=== PATIENT | female | born 1985 | race Two or more races ===

== ENCOUNTER 2017-07-10 06:24 | Inpatient (IN) | payer OTHER ==
[2017-07-10] VITALS (7 sets, daily range): BP systolic 103–127; BP diastolic 45–69
[~2017-07-10] VITALS: Ht 160 cm; Wt 68.0 kg
[2017-07-10] MEDS ORDERED: NKM (06:33)
[2017-07-10] MEDS ORDERED: Ketorolac 30mg Inj IV ONE (06:45)
--- NOTE | 2017-07-10 06:49 | Emergency Room Report ---
History of Present Illness General Chief Complaint: Abdominal Pain Source: Patient Present Illness HPI The patient presents with abdominal pain. Began this morning. She feels it under her ribs on the left-hand side and it radiates down to the lower abdomen. It's more in the left upper abdomen. It's constant. /10. She felt was related to constipation and so she took a stool softener and also the other laxative. She last moved her bowels yesterday, normal. She denies any dysuria. Her last period was 10 days ago and normal for her. There's no fever , nausea, vomiting. It started 2 days ago in the evening time. It's been gradual in onset. She feels it is sharp. It's somewhat pleuritic and positional. She denies any cough. Never with this pain in the past. No calf pain or edema. No hemoptysis. No rashes. No documented fever. No joint pain or headache. 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 Period: a week ago Reviewed Nursing Documentation: PMH: Agreed, PSxH: Agreed Nursing Documentation-PMH Past Medical History: No Stated History Review of Systems All Other Systems: negative except mentioned in HPI Physical Exam Vital Signs Date Time Temp Pulse Resp B/P (MAP) Pulse Ox O2 Delivery O2 Flow Rate FiO2 07/10/17 06:25 99.0 104 16 127/84 98 Room Air 99.0 Sp02 EP Interpretation: reviewed, normal General Appearance: well appearing, no apparent distress, GCS 15 Head: normocephalic Eyes: bilateral eye normal inspection, bilateral eye PERRL ENT: moist mucus membranes Neck: supple Respiratory: lungs clear, normal breath sounds Cardiovascular #1: regular rate, rhythm Cardiovascular #2: 2+ radial (R) Gastrointestinal: normal inspection, normal bowel sounds, no mass, non- distended, no rebound, guarding - minimal L flank, LUQ and LLQ, tenderness - slight referred from other side Genitourinary: no CVA tenderness Musculoskeletal: back normal, gait/station normal, normal range of motion Neurologic: alert, oriented x3, grossly normal Psychiatric: mood/affect normal Skin: normal inspection, warm/dry Medical Decision Making Diagnostic Impression: Primary Impression: Acute diverticulitis ER Course Patient presents with left flank pain for 2 and half days. Differential includes gastritis, pyelonephritis, renal stone, splenic enlargement, ovarian cyst, diverticulitis amongst others. She doesn't think she is . Evaluation will be with labs and x-rays. The patient be treated with IV hydration and Toradol with a dose of Tylenol. Considerations for CT scan and possibly ultrasound. Restless leukocytosis. Urinalysis and electrolysis negative. Because of leukocytosis and persistent pain a CT scan of the abdomen and pelvis was ordered. Pain is somewhat improved. After the Toradol and Tylenol pain is down to 5/10. She still has a guarding in the left flank without rebound. CT with diverticulitis without perforation or abscess. Antibiotics ordered. Pain slightly worsened, morphine ordered. Pain better and declines more analgesia. Not surgical abdomen. Admit med Dr. Garcia. Laboratory Tests Test 07/10/17 06:34 07/10/17 07:00 Urine Color Pale yellow Urine Appearance Clear Urine pH 6 (4.5-8.0) Urine Specific [place] 1.020 (1.005-1.035) Urine Protein Negative (NEGATIVE) Urine Glucose (UA) Negative (NEGATIVE) Urine Ketones Negative (NEGATIVE) Urine Occult Blood Negative (NEGATIVE) Urine Nitrite Negative (NEGATIVE) Urine Bilirubin Negative (NEGATIVE) Urine Urobilinogen Normal MG/DL (0.0-1.0) Urine Leukocyte Esterase Negative (NEGATIVE) Urine HCG, Qualitative Negative White Blood Count 16.6 K/UL (4.8-10.8) H Red Blood Count 4.86 M/UL (4.20-5.40) Hemoglobin 15.6 G/DL (12.0-16.0) Hematocrit 45.2 % (37.0-47.0) Mean Corpuscular Volume 93 FL (80-99) Mean Corpuscular Hemoglobin 32.0 PG (27.0-31.0) H Mean Corpuscular Hemoglobin Concent 34.4 G/DL (32.0-36.0) Red Cell Distribution Width 11.9 % (11.6-14.8) Platelet Count 256 K/UL (150-450) Mean Platelet Volume 6.6 FL (6.5-10.1) Neutrophils (%) (Auto) 82.9 % (45.0-75.0) H Lymphocytes (%) (Auto) 8.3 % (20.0-45.0) L Monocytes (%) (Auto) 7.9 % (1.0-10.0) Eosinophils (%) (Auto) 0.2 % (0.0-3.0) Basophils (%) (Auto) 0.8 % (0.0-2.0) Prothrombin Time 9.7 SEC (9.30-11.50) Prothrombin Time INR 0.9 (0.9-1.1) PTT 28 SEC (23-33) Sodium Level 135 MMOL/L (136-145) L Potassium Level 4.0 MMOL/L (3.5-5.1) Chloride Level 102 MMOL/L (98-107) Carbon Dioxide Level 24 MMOL/L (21-32) Anion Gap 9 mmol/L (5-15) Blood Urea Nitrogen 12 mg/dL (7-18) Creatinine 0.9 MG/DL (0.55-1.30) Estimate Glomerular Filtration Rate > 60 mL/min (>60) Glucose Level 97 MG/DL (74-106) Calcium Level 9.7 MG/DL (8.5-10.1) Total Bilirubin 0.8 MG/DL (0.2-1.0) Aspartate Amino Transferase (AST) 23 U/L (15-37) Alanine Aminotransferase (ALT) 18 U/L (12-78) Alkaline Phosphatase 87 U/L (46-116) Total Protein 8.1 G/DL (6.4-8.2) Albumin 4.1 G/DL (3.4-5.0) Globulin 4.0 g/dL Albumin/Globulin Ratio 1.0 (1.0-2.7) Lipase 161 U/L (73-393) Rhythm Strip Diag. Results EP Interpretation: yes Rhythm: NSR, no PVC's, no ectopy CT/MRI/US Diagnostic Results CT/MRI/US Diagnostic Results : Imaging Test Ordered: abd/pelvis Impression IMPRESSION: Acute diverticulitis in the area of the descending colon. No abscess identified. Minimal posterior basal atelectasis Trace pericardial fluid versus thickening. Tiny hiatal hernia Suggestion of small bilateral ovarian cysts. Normal appendix Last Vital Signs Date Time Temp Pulse Resp B/P (MAP) Pulse Ox O2 Delivery O2 Flow Rate FiO2 07/10/17 06:25 99.0 104 16 127/84 98 Room Air 99.0 Status: improved Disposition: ADMITTED INPATIENT Condition: Serious Ben Rosales M.D. Jul 10, 2017 06:49
[2017-07-10 07:10] LABS: APPEARANCE,URINE CLEAR; COLOR,URINE PALE YELLOW; GLUCOSE, URINE (UA) NEGATIVE (NEGATIVE); KETONES,URINE NEGATIVE (NEGATIVE); PH,URINE 6 (4.5-8.0); PROTEIN,URINE NEGATIVE (NEGATIVE)
[2017-07-10 07:11] LABS: BILIRUBIN, URINE NEGATIVE (NEGATIVE); LEUKOCYTE ESTERASE ,URINE NEGATIVE (NEGATIVE); NITRITE,URINE NEGATIVE (NEGATIVE); UROBILINOGEN,URINE NORMAL MG/DL (0.0-1.0)
[2017-07-10 07:22] LABS: BASOPHILS % (AUTO) 0.8 % (0.0-2.0); EOSINOPHILS % (AUTO) 0.2 % (0.0-3.0); HEMATOCRIT 45.2 % (37.0-47.0); HEMOGLOBIN 15.6 G/DL (12.0-16.0); LYMPHOCYTES % (AUTO) 8.3 % (20.0-45.0); MEAN CORPUSCULAR VOLUME 93 FL (80-99); MONOCYTES % (AUTO) 7.9 % (1.0-10.0); NEUTROPHILS % (AUTO) 82.9 % (45.0-75.0); PLATELET COUNT 256 K/UL (150-450); RED BLOOD COUNT 4.86 M/UL (4.20-5.40); RED CELL DISTRIBUTION WIDTH 11.9 % (11.6-14.8); WHITE BLOOD COUNT 16.6 K/UL (4.8-10.8)
[2017-07-10 07:29] LABS: INR 0.9 (0.9-1.1)
[2017-07-10 08:18] LABS: ALANINE AMINOTRANSFERASE 18 U/L (12-78); ALBUMIN 4.1 G/DL (3.4-5.0); ALKALINE PHOSPHATASE 87 U/L (46-116); ANION GAP 9 mmol/L (5-15); ASPARTATE AMINO TRANSFERASE 23 U/L (15-37); BILIRUBIN,TOTAL 0.8 MG/DL (0.2-1.0); BLOOD UREA NITROGEN 12 mg/dL (7-18); CALCIUM 9.7 MG/DL (8.5-10.1); CARBON DIOXIDE 24 MMOL/L (21-32); CHLORIDE 102 MMOL/L (98-107); CREATININE 0.9 MG/DL (0.55-1.30); SODIUM 135 MMOL/L (136-145)
[2017-07-10] MEDS ORDERED: Morphine Sulfate 4mg/ml Inj IVP ONE (11:30)
[2017-07-10] MEDS ORDERED: Cefepime HCl 1 GM in D5W 55 ML IVPB ONE (11:30)
--- NOTE | 2017-07-10 11:42 | Diagnostic Imaging Report ---
Indication: Abdominal pain Technique: Continuous helical transaxial imaging of the abdomen and pelvis was obtained from the lung bases to the pubic symphysis during intravenous contrast administration. Coronal 2-D reformats were also obtained. Study obtained in a Siemens sensation [address] Automatic Exposure Control was utilized. Total Dose length Product (DLP): 799.[address] Dose Index Volume (CTDIvol): 15.7 mGy Comparison: None Findings: Mild, peripheral, posterior linear densities are demonstrated likely subsegmental atelectasis. Trace pericardial fluid noted. Heart size appears normal. There is a small hiatal hernia. The gallbladder appears unremarkable. The spleen, kidneys and pancreas are unremarkable. The left-sided abdomen there is subtle soft tissue stranding of fat adjacent to and just posterior to part of the descending colon. There are 2 tiny bubbles of air which are likely within diverticula. The wall of the colon in this location is ill-defined. Findings consistent with acute diverticulitis. There is no abscess identified. Diverticula noted elsewhere within the colon as well. Intrauterine device noted. Suggestion of small bilateral ovarian cysts. The appendix is normal. No evidence of bowel obstruction, free fluid or free air. Bladder is mildly distended. IMPRESSION: Acute diverticulitis in the area of the descending colon. No abscess identified. Minimal posterior basal atelectasis Trace pericardial fluid versus thickening. Tiny hiatal hernia Suggestion of small bilateral ovarian cysts. Normal appendix The CT scanner at [facility] is accredited by the [employer] and the scans are performed using dose optimization techniques as appropriate to a performed exam including Automatic Exposure control.
[2017-07-10] MEDS ORDERED: Cefepime 1gm vial ONE (11:43)
--- NOTE | 2017-07-10 13:09 | History and Physical ---
History of Present Illness General Date patient seen: Jul 10, 2017 Time patient seen: 13:00 Reason for Hospitalization: Abdominal Pain Present Illness HPI 31y/o female with no sig pmh who presents with abd pain. Pt states pain began as slight discomfort 2 days ago (on Saturday) but worsened yesterday night and this AM prompting her to come to ER. She feels a sharp pain under her ribs on the left-hand side and it radiates down to the lower abdomen. It's more in the left upper abdomen. It's constant. 8/10. She felt was related to constipation and so she took a stool softener and also the other laxative. She last moved her bowels yesterday, normal BM, no blood in stool. She denies any dysuria. Her last period was 10 days ago and normal for her. Some subjective fevers, no chills/night sweats. Denies n/v/d, chest pain, SOB, cough. In ED, pt noted to have low-grade fever, WBC to 16K. CT a/p showed acute diverticulitis. Allergies: Coded Allergies: PENICILLINS (Verified Allergy, Unknown, 07/10/17) Medication History Scheduled No Known Medications* (NKM - No Known Medications*), 0 ., (Reported) Patient History History Provided By: Patient, Medical Record Healthcare decision maker Resuscitation status Advanced Directive on File Past Medical/Surgical History Past Medical/Surgical History: (1) No significant past medical history (2) No significant past surgical history Family History Family History: Patient reports no known family medical history. Social History Social History: (1) No significant social history Review of Systems Constitutional: Reports: fever, malaise Eye: Reports: no symptoms ENT: Reports: no symptoms Respiratory: Reports: no symptoms Cardiovascular: Reports: no symptoms Gastrointestinal: Reports: abdominal pain Genitourinary: Reports: no symptoms Musculoskeletal: Reports: no symptoms Skin: Reports: no symptoms Psychiatric: Reports: no symptoms Neurological: Reports: no symptoms Endocrine: Reports: no symptoms Hematologic/Lymphatic: Reports: no symptoms Physical Exam Physical Exam Narrative General: alert, cooperative, no distress, appears stated age Head: normocephalic, without obvious abnormality, atraumatic Eyes: conjunctivae/corneas clear. PERRL, EOM's intact Throat: lips, mucosa, and tongue normal. MMM Neck: supple, symmetrical, trachea midline, and no JVD Lungs: clear to auscultation bilaterally Heart: regular rate and rhythm, S1, S2 normal, no murmur, click, rub or gallop Abdomen: soft, +TTP of LUQ and LLQ without rebound, guarding, or periotnitis, non-distended, bowel sounds normal; no masses or organomegaly Extremities: extremities normal, atraumatic, no cyanosis or edema Pulses: 2+ and symmetric Skin: skin color, texture, turgor normal; no rashes or lesions Neurologic: grossly normal, no focal deficits Last 24 Hour Vital Signs Date Time Temp Pulse Resp B/P (MAP) Pulse Ox O2 Delivery O2 Flow Rate FiO2 07/10/17 11:48 99.0 07/10/17 11:23 88 18 113/56 100 Room Air 07/10/17 09:44 69 18 103/45 100 Room Air 07/10/17 08:30 99.0 07/10/17 07:50 99.0 07/10/17 07:11 99.0 07/10/17 07:11 99.0 07/10/17 06:40 98.8 91 17 115/68 99 Room Air 98.8 07/10/17 06:25 99.0 104 16 127/84 98 Room Air 99.0 Intake and Output 07/09/17 07/10/17 19:00 07:00 Output Total 0 ml Balance 0 ml Output Urine Total 0 ml Laboratory Tests Test 07/10/17 06:34 07/10/17 07:00 Urine Color Pale yellow Urine Appearance Clear Urine pH 6 (4.5-8.0) Urine Specific [place] 1.020 (1.005-1.035) Urine Protein Negative (NEGATIVE) Urine Glucose (UA) Negative (NEGATIVE) Urine Ketones Negative (NEGATIVE) Urine Occult Blood Negative (NEGATIVE) Urine Nitrite Negative (NEGATIVE) Urine Bilirubin Negative (NEGATIVE) Urine Urobilinogen Normal MG/DL (0.0-1.0) Urine Leukocyte Esterase Negative (NEGATIVE) Urine HCG, Qualitative Negative White Blood Count 16.6 K/UL (4.8-10.8) H Red Blood Count 4.86 M/UL (4.20-5.40) Hemoglobin 15.6 G/DL (12.0-16.0) Hematocrit 45.2 % (37.0-47.0) Mean Corpuscular Volume 93 FL (80-99) Mean Corpuscular Hemoglobin 32.0 PG (27.0-31.0) H Mean Corpuscular Hemoglobin Concent 34.4 G/DL (32.0-36.0) Red Cell Distribution Width 11.9 % (11.6-14.8) Platelet Count 256 K/UL (150-450) Mean Platelet Volume 6.6 FL (6.5-10.1) Neutrophils (%) (Auto) 82.9 % (45.0-75.0) H Lymphocytes (%) (Auto) 8.3 % (20.0-45.0) L Monocytes (%) (Auto) 7.9 % (1.0-10.0) Eosinophils (%) (Auto) 0.2 % (0.0-3.0) Basophils (%) (Auto) 0.8 % (0.0-2.0) Prothrombin Time 9.7 SEC (9.30-11.50) Prothromb Time International Ratio 0.9 (0.9-1.1) Activated Partial Thromboplast Time 28 SEC (23-33) Sodium Level 135 MMOL/L (136-145) L Potassium Level 4.0 MMOL/L (3.5-5.1) Chloride Level 102 MMOL/L (98-107) Carbon Dioxide Level 24 MMOL/L (21-32) Anion Gap 9 mmol/L (5-15) Blood Urea Nitrogen 12 mg/dL (7-18) Creatinine 0.9 MG/DL (0.55-1.30) Estimat Glomerular Filtration Rate > 60 mL/min (>60) Glucose Level 97 MG/DL (74-106) Calcium Level 9.7 MG/DL (8.5-10.1) Total Bilirubin 0.8 MG/DL (0.2-1.0) Aspartate Amino Transf (AST/SGOT) 23 U/L (15-37) Alanine Aminotransferase (ALT/SGPT) 18 U/L (12-78) Alkaline Phosphatase 87 U/L (46-116) Total Protein 8.1 G/DL (6.4-8.2) Albumin 4.1 G/DL (3.4-5.0) Globulin 4.0 g/dL Albumin/Globulin Ratio 1.0 (1.0-2.7) Lipase 161 U/L (73-393) Height (Feet): 5 Height (Inches): 3.00 Weight (Pounds): 150 Medications Current Medications Medications (Trade) Dose Ordered Sig/Jamey Route PRN Reason Start Time Stop Time Status Last Admin Dose Admin Sodium Chloride 1,000 ml @ 300 mls/hr Q3H20M IV 07/10/17 06:45 08/09/17 06:44 07/10/17 09:41 Assessment/Plan Problem List: (1) Acute diverticulitis ICD Codes: K57.92 - Diverticulitis of intestine, part unspecified, without perforation or abscess without bleeding SNOMED: 807123177 (2) Sepsis ICD Codes: A41.9 - Sepsis, unspecified organism SNOMED: 82708074 (3) Hyponatremia ICD Codes: E87.1 - Hypo-osmolality and hyponatremia SNOMED: 38044879 Status: stable Assessment/Plan Admit inpt Surgery consulted OK for CLD per surgery mIVFs Empiric IV abx: cipro + flagyl for acute diverticulitis Serial abd exam Pain control, bowel regimen Supportive care SCDs and early ambulation for DVT ppx PPI FULL CODE Discussed with patient, RN, surgery regarding mgmt and dispo. D/w surgery re starting CLD. Kat Somers M.D. Jul 10, 2017 13:09
[2017-07-10] MEDS ORDERED: Miralax 17gm pkt ORAL PRN (13:15)
[2017-07-10] MEDS ORDERED: Morphine Sulfate 4mg/ml Inj IVP PRN (13:15)
[2017-07-10] MEDS ORDERED: Morphine Sulfate 2mg/ml Inj IVP PRN (13:15)
[2017-07-10] MEDS ORDERED: Acetaminophen 650 MG SUPP RECTAL PRN ×2 (13:15)
[2017-07-10] MEDS ORDERED: Zolpidem 5mg tab ORAL PRN (13:15)
[2017-07-10] MEDS ORDERED: D5 1/2NS w/KCl 20mEq 1,000 ML IV SCH (14:04)
[2017-07-10] MEDS ORDERED: Ketorolac 30mg Inj IV PRN (14:45)
[2017-07-10] MEDS: D5 1/2NS w/KCl 20mEq 1,000 ML IV SCH (15:23)
--- NOTE | 2017-07-10 16:41 | Consultation ---
History of Present Illness General Date patient seen: Jul 10, 2017 Chief Complaint: Abdominal Pain Reason for Consultation: diverticulitis Present Illness HPI 31 year old otherwise healthy female presented with worsening abdominal pain. As per patient, she was in her normal state of health until a few days ago when she noted some lower abdominal cramping. Initially did not think much of it but in the last 24hrs pain became much worse and she came to ED for evaluation. Pain cramping LLQ pain without radiation. 8/10 at max. no n/v/f/c. no diarrhea. last BM yesterday and normal. no prior episodes. in ED had CT scan which demonstrated acute non perforated diverticulitis with leukocytosis and abdominal tenderness. Surgery called to evaluate. Allergies: Coded Allergies: PENICILLINS (Verified Allergy, Unknown, 07/10/17) Medication History Scheduled No Known Medications* (NKM - No Known Medications*), 0 ., (Reported) Patient History History Provided By: Patient, Medical Record, PMD Healthcare decision maker Resuscitation status Full Code Advanced Directive on File Past Medical/Surgical History Past Medical/Surgical History: (1) Acute diverticulitis Review of Systems Constitutional: Denies: no symptoms, see HPI, chills, sweats, fever, malaise, weakness, other Eye: Denies: no symptoms, see HPI, eye pain, blurred vision, tearing, double vision, nose pain, nose congestion, acuity changes, discharge, other ENT: Denies: no symptoms, see HPI, ear pain, ear discharge, nose pain, nose congestion, throat pain, throat swelling, mouth pain, hearing loss, nasal discharge, other Respiratory: Denies: no symptoms, see HPI, cough, orthopnea, shortness of breath, stridor, wheezing, FARIA, sputum, other Cardiovascular: Denies: no symptoms, see HPI, chest pain, edema, palpitations, syncope, PND, other Gastrointestinal: Reports: abdominal pain Genitourinary: Denies: no symptoms, see HPI, discharge, dysuria, frequency, hematuria, pain, retention, incontinence, urgency, vag bleed/dc, other Musculoskeletal: Denies: no symptoms, see HPI, back pain, gout, joint pain, joint swelling, muscle pain, muscle stiffness, other Skin: Denies: no symptoms, see HPI, rash, change in color, change in hair/nails , dryness, lesions, other Psychiatric: Denies: no symptoms, see HPI, prior hx, anxiety, depressed feelings, emotional problems, SI, HI, hallucinations, other Neurological: Denies: no symptoms, see HPI, headache, numbness, paresthesia, seizure, tingling, tremors, focal weakness, syncope, dizziness, other Endocrine: Denies: no symptoms, see HPI, excessive sweating, flushing, intolerance to temperature, increased thirst, increased urine, unexplained weight loss, other Hematologic/Lymphatic: Denies: no symptoms, see HPI, anemia, blood clots, easy bleeding, easy bruising, swollen glands, diathesis, other All Other Systems: negative except mentioned in HPI Physical Exam General Appearance: no apparent distress, alert Lines, tubes and drains: peripheral HEENT: normocephalic, mucous membranes moist, PERRL Neck: normal alignment, supple Respiratory/Chest: lungs clear, normal breath sounds, no respiratory distress, no accessory muscle use Cardiovascular/Chest: normal peripheral pulses, normal rate, regular rhythm Abdomen: normal bowel sounds, soft, no organomegaly, no mass, other - soft, tender in LLQ without rebound, guarding, or periotnitis. Extremities: normal inspection Skin Exam: normal pigmentation, warm/dry Neurologic: alert, oriented x 3 Last 24 Hour Vital Signs Date Time Temp Pulse Resp B/P (MAP) Pulse Ox O2 Delivery O2 Flow Rate FiO2 07/10/17 16:00 100.2 101 19 127/69 100 07/10/17 15:35 101.2 07/10/17 14:00 98.8 94 18 121/67 100 07/10/17 13:21 88 20 113/66 99 Room Air 07/10/17 13:12 97 18 113/66 97 Room Air 07/10/17 11:48 99.0 07/10/17 11:23 88 18 113/56 100 Room Air 07/10/17 09:44 69 18 103/45 100 Room Air 07/10/17 08:30 99.0 07/10/17 07:50 99.0 07/10/17 07:11 99.0 07/10/17 07:11 99.0 07/10/17 06:40 98.8 91 17 115/68 99 Room Air 98.8 07/10/17 06:25 99.0 104 16 127/84 98 Room Air 99.0 Intake and Output 07/09/17 07/10/17 19:00 07:00 Output Total 0 ml Balance 0 ml Output Urine Total 0 ml Laboratory Tests Test 07/10/17 06:34 07/10/17 07:00 Urine Color Pale yellow Urine Appearance Clear Urine pH 6 (4.5-8.0) Urine Specific [place] 1.020 (1.005-1.035) Urine Protein Negative (NEGATIVE) Urine Glucose (UA) Negative (NEGATIVE) Urine Ketones Negative (NEGATIVE) Urine Occult Blood Negative (NEGATIVE) Urine Nitrite Negative (NEGATIVE) Urine Bilirubin Negative (NEGATIVE) Urine Urobilinogen Normal MG/DL (0.0-1.0) Urine Leukocyte Esterase Negative (NEGATIVE) Urine HCG, Qualitative Negative White Blood Count 16.6 K/UL (4.8-10.8) H Red Blood Count 4.86 M/UL (4.20-5.40) Hemoglobin 15.6 G/DL (12.0-16.0) Hematocrit 45.2 % (37.0-47.0) Mean Corpuscular Volume 93 FL (80-99) Mean Corpuscular Hemoglobin 32.0 PG (27.0-31.0) H Mean Corpuscular Hemoglobin Concent 34.4 G/DL (32.0-36.0) Red Cell Distribution Width 11.9 % (11.6-14.8) Platelet Count 256 K/UL (150-450) Mean Platelet Volume 6.6 FL (6.5-10.1) Neutrophils (%) (Auto) 82.9 % (45.0-75.0) H Lymphocytes (%) (Auto) 8.3 % (20.0-45.0) L Monocytes (%) (Auto) 7.9 % (1.0-10.0) Eosinophils (%) (Auto) 0.2 % (0.0-3.0) Basophils (%) (Auto) 0.8 % (0.0-2.0) Prothrombin Time 9.7 SEC (9.30-11.50) Prothromb Time International Ratio 0.9 (0.9-1.1) Activated Partial Thromboplast Time 28 SEC (23-33) Sodium Level 135 MMOL/L (136-145) L Potassium Level 4.0 MMOL/L (3.5-5.1) Chloride Level 102 MMOL/L (98-107) Carbon Dioxide Level 24 MMOL/L (21-32) Anion Gap 9 mmol/L (5-15) Blood Urea Nitrogen 12 mg/dL (7-18) Creatinine 0.9 MG/DL (0.55-1.30) Estimat Glomerular Filtration Rate > 60 mL/min (>60) Glucose Level 97 MG/DL (74-106) Calcium Level 9.7 MG/DL (8.5-10.1) Total Bilirubin 0.8 MG/DL (0.2-1.0) Aspartate Amino Transf (AST/SGOT) 23 U/L (15-37) Alanine Aminotransferase (ALT/SGPT) 18 U/L (12-78) Alkaline Phosphatase 87 U/L (46-116) Total Protein 8.1 G/DL (6.4-8.2) Albumin 4.1 G/DL (3.4-5.0) Globulin 4.0 g/dL Albumin/Globulin Ratio 1.0 (1.0-2.7) Lipase 161 U/L (73-393) Height (Feet): 5 Height (Inches): 3.00 Weight (Pounds): 150 Medications Current Medications Medications (Trade) Dose Ordered Sig/Jamey Route PRN Reason Start Time Stop Time Status Last Admin Dose Admin Acetaminophen (Tylenol) 650 mg Q4H PRN ORAL fever 07/10/17 13:15 08/09/17 13:14 07/10/17 15:35 Acetaminophen (Tylenol) 650 mg Q4H PRN ORAL Mild Pain (Pain Scale 1-3) 07/10/17 13:15 08/09/17 13:14 Acetaminophen (Tylenol) 650 mg Q4H PRN RECTAL Mild Pain (Pain Scale 1-3) 07/10/17 13:15 08/09/17 13:14 Acetaminophen (Tylenol) 650 mg Q4H PRN RECTAL fever 07/10/17 13:15 08/09/17 13:14 Ciprofloxacin 200 ml @ 200 mls/hr Q12HR IVPB 07/10/17 21:00 07/17/17 20:59 Dextrose (Dextrose 50%) STAT PRN IV Hypoglycemia 07/10/17 13:15 08/09/17 13:14 Dextrose/ Electrolytes 1,000 ml @ 75 mls/hr [id number] IV 07/10/17 16:00 08/09/17 15:59 07/10/17 15:23 Ketorolac Tromethamine (Toradol 30mg) 15 mg Q6H PRN IV moderate to severe pain 07/10/17 14:45 07/15/17 14:44 Metronidazole (Flagyl) 500 mg TID ORAL 07/10/17 18:00 07/17/17 17:59 Ondansetron HCl (Zofran) 4 mg Q6H PRN IVP Nausea & Vomiting 07/10/17 13:15 08/09/17 13:14 Polyethylene Glycol (Miralax) 17 gm HSPRN PRN ORAL Constipation 07/10/17 13:15 08/09/17 13:14 Sodium Chloride 1,000 ml @ 300 mls/hr Q3H20M IV 07/10/17 06:45 08/09/17 06:44 07/10/17 09:41 Zolpidem Tartrate (Ambien) 5 mg HSPRN PRN ORAL Insomnia 07/10/17 13:15 07/17/17 13:14 Assessment/Plan Problem List: (1) Acute diverticulitis Assessment & Plan: Acute uncomplicated diverticulitis in otherwise healthy 31 year old young female. low grade fever, leukocytosis, CT findings as above, exam as above. -okay for clear liquids. -IV Abx -will monitor exam. fortunately will likely do well without any issues during this admission. given findings should have IV abx until tenderness and leukocytosis resolved. will follow with recs. thank you for this consultation. long discussion at bedside regarding findings, care plan and management. all questions answered. ICD Codes: K57.92 - Diverticulitis of intestine, part unspecified, without perforation or abscess without bleeding SNOMED: 327227293 Status: stable Mendez Guthrie Jul 10, 2017 16:40
[2017-07-10] MEDS: metroNIDAZOLE 500mg tab ORAL SCH (17:00)
[2017-07-11] VITALS: BP 101/53
[2017-07-11 03:58] VITALS: BP 104/68
[2017-07-11] MEDS: D5 1/2NS w/KCl 20mEq 1,000 ML IV SCH ×2 (05:38→17:40)
[2017-07-11 07:09] LABS: HEMATOCRIT 36.5 % (37.0-47.0); HEMOGLOBIN 12.9 G/DL (12.0-16.0); MEAN CORPUSCULAR VOLUME 93 FL (80-99); PLATELET COUNT 223 K/UL (150-450); RED BLOOD COUNT 3.94 M/UL (4.20-5.40); RED CELL DISTRIBUTION WIDTH 11.9 % (11.6-14.8); WHITE BLOOD COUNT 18.4 K/UL (4.8-10.8)
[2017-07-11 07:27] LABS: ALANINE AMINOTRANSFERASE 16 U/L (12-78); ALBUMIN/GLOBULIN RATIO 0.8 (1.0-2.7); ALKALINE PHOSPHATASE 58 U/L (46-116); ANION GAP 7 mmol/L (5-15); ASPARTATE AMINO TRANSFERASE 11 U/L (15-37); BILIRUBIN,TOTAL 1.1 MG/DL (0.2-1.0); BLOOD UREA NITROGEN 3 mg/dL (7-18); CALCIUM 8.6 MG/DL (8.5-10.1); CARBON DIOXIDE 23 MMOL/L (21-32); CHLORIDE 104 MMOL/L (98-107); CREATININE 0.8 MG/DL (0.55-1.30); POTASSIUM 3.6 MMOL/L (3.5-5.1); SODIUM 134 MMOL/L (136-145)
[2017-07-11 07:40] LABS: BILIRUBIN,DIRECT 0.3 MG/DL (0.0-0.3)
[2017-07-11 08:17] VITALS: BP 99/54
[2017-07-11] MEDS: metroNIDAZOLE 500mg tab ORAL SCH ×2 (08:22→12:33)
[2017-07-11 11:49] VITALS: BP 101/60
--- NOTE | 2017-07-11 13:31 | Infectious Diseases Prog Note ---
Assessment/Plan Assessment/Plan Full consult dictated: A) 1) acute diverticulitis, leukocytosis, abdominal pain since Saturday, fevers 2) allergies - pcn, throat closes, rash 3) ct noted - no abscess P) 1) cipro and flagyl iv 2) watch labs and temps 3) d/w Dr. Stephens and patient 4) thank you Subjective Allergies: Coded Allergies: PENICILLINS (Verified Allergy, Unknown, 07/10/17) Objective Vital Signs Last 24 Hour Vital Signs Date Time Temp Pulse Resp B/P (MAP) Pulse Ox O2 Delivery O2 Flow Rate FiO2 07/11/17 12:27 98.4 07/11/17 11:49 98.4 86 20 101/60 100 07/11/17 11:28 98.4 07/11/17 08:17 98.4 89 18 99/54 97 07/11/17 03:58 99.8 94 18 104/68 97 07/11/17 00:00 100.8 97 18 101/53 97 07/11/17 00:00 97 Room Air 07/10/17 20:00 95 Room Air 07/10/17 20:00 99.9 107 18 107/66 95 07/10/17 16:34 101.7 07/10/17 16:00 100.2 101 19 127/69 100 07/10/17 15:35 101.2 07/10/17 14:00 98.8 94 18 121/67 100 Height (Feet): 5 Height (Inches): 3.00 Weight (Pounds): 150 Laboratory Tests Test 07/11/17 05:35 White Blood Count 18.4 K/UL (4.8-10.8) H Red Blood Count 3.94 M/UL (4.20-5.40) L Hemoglobin 12.9 G/DL (12.0-16.0) Hematocrit 36.5 % (37.0-47.0) L Mean Corpuscular Volume 93 FL (80-99) Mean Corpuscular Hemoglobin 32.6 PG (27.0-31.0) H Mean Corpuscular Hemoglobin Concent 35.3 G/DL (32.0-36.0) Red Cell Distribution Width 11.9 % (11.6-14.8) Platelet Count 223 K/UL (150-450) Mean Platelet Volume 6.1 FL (6.5-10.1) L Neutrophils (%) (Auto) % (45.0-75.0) Lymphocytes (%) (Auto) % (20.0-45.0) Monocytes (%) (Auto) % (1.0-10.0) Eosinophils (%) (Auto) % (0.0-3.0) Basophils (%) (Auto) % (0.0-2.0) Differential Total Cells Counted 100 Neutrophils % (Manual) 73 % (45-75) Lymphocytes % (Manual) 16 % (20-45) L Monocytes % (Manual) 11 % (1-10) H Eosinophils % (Manual) 0 % (0-3) Basophils % (Manual) 0 % (0-2) Band Neutrophils 0 % (0-8) Platelet Estimate Adequate Platelet Morphology Normal Red Blood Cell Morphology Normal Sodium Level 134 MMOL/L (136-145) L Potassium Level 3.6 MMOL/L (3.5-5.1) Chloride Level 104 MMOL/L (98-107) Carbon Dioxide Level 23 MMOL/L (21-32) Anion Gap 7 mmol/L (5-15) Blood Urea Nitrogen 3 mg/dL (7-18) L Creatinine 0.8 MG/DL (0.55-1.30) Estimat Glomerular Filtration Rate > 60 mL/min (>60) Glucose Level 99 MG/DL (74-106) Calcium Level 8.6 MG/DL (8.5-10.1) Magnesium Level 1.7 MG/DL (1.8-2.4) L Total Bilirubin 1.1 MG/DL (0.2-1.0) H Direct Bilirubin 0.3 MG/DL (0.0-0.3) Aspartate Amino Transf (AST/SGOT) 11 U/L (15-37) L Alanine Aminotransferase (ALT/SGPT) 16 U/L (12-78) Alkaline Phosphatase 58 U/L (46-116) Total Protein 6.6 G/DL (6.4-8.2) Albumin 3.0 G/DL (3.4-5.0) L Globulin 3.6 g/dL Albumin/Globulin Ratio 0.8 (1.0-2.7) L Current Medications Medications (Trade) Dose Ordered Sig/Jamey Route PRN Reason Start Time Stop Time Status Last Admin Dose Admin Acetaminophen (Tylenol) 650 mg Q4H PRN ORAL fever 07/10/17 13:15 08/09/17 13:14 07/10/17 15:35 Acetaminophen (Tylenol) 650 mg Q4H PRN ORAL Mild Pain (Pain Scale 1-3) 07/10/17 13:15 08/09/17 13:14 07/11/17 11:28 Acetaminophen (Tylenol) 650 mg Q4H PRN RECTAL Mild Pain (Pain Scale 1-3) 07/10/17 13:15 08/09/17 13:14 Acetaminophen (Tylenol) 650 mg Q4H PRN RECTAL fever 07/10/17 13:15 08/09/17 13:14 Ciprofloxacin 200 ml @ 200 mls/hr Q12HR IVPB 07/10/17 21:00 07/17/17 20:59 07/11/17 08:22 Dextrose (Dextrose 50%) STAT PRN IV Hypoglycemia 07/10/17 13:15 08/09/17 13:14 Dextrose/ Electrolytes 1,000 ml @ 75 mls/hr [id number] IV 07/10/17 16:00 08/09/17 15:59 07/11/17 05:38 Ketorolac Tromethamine (Toradol 30mg) 15 mg Q6H PRN IV moderate to severe pain 07/10/17 14:45 07/15/17 14:44 Metronidazole (Flagyl) 500 mg TID ORAL 07/10/17 18:00 07/17/17 17:59 07/11/17 12:33 Ondansetron HCl (Zofran) 4 mg Q6H PRN IVP Nausea & Vomiting 07/10/17 13:15 08/09/17 13:14 Polyethylene Glycol (Miralax) 17 gm HSPRN PRN ORAL Constipation 07/10/17 13:15 08/09/17 13:14 Zolpidem Tartrate (Ambien) 5 mg HSPRN PRN ORAL Insomnia 07/10/17 13:15 07/17/17 13:14 JENNIFER ROSAS Jul 11, 2017 13:31
--- NOTE | 2017-07-11 14:08 | General Surgery Progress Note ---
General Surgery-Progress Note Subjective Symptoms: improved, tolerating diet, passing flatus Additional Comments doing well. mild lower abdominal discomfort but states she feels better. no n/ v/f/c. tolerating clears. ambulatory. Objective Last 24 Hour Vital Signs Date Time Temp Pulse Resp B/P (MAP) Pulse Ox O2 Delivery O2 Flow Rate FiO2 07/11/17 12:27 98.4 07/11/17 11:49 98.4 86 20 101/60 100 07/11/17 11:28 98.4 07/11/17 08:17 98.4 89 18 99/54 97 07/11/17 03:58 99.8 94 18 104/68 97 07/11/17 00:00 100.8 97 18 101/53 97 07/11/17 00:00 97 Room Air 07/10/17 20:00 95 Room Air 07/10/17 20:00 99.9 107 18 107/66 95 07/10/17 16:34 101.7 07/10/17 16:00 100.2 101 19 127/69 100 07/10/17 15:35 101.2 I&O Intake and Output 07/10/17 07/11/17 19:00 07:00 Intake Total 2275 ml 1320 ml Balance 2275 ml 1320 ml Intake Oral 260 ml IV Total 2275 ml 1060 ml # Voids 2 Drains: none Cardiovascular: RSR Respiratory: clear Abdomen: soft, flat, non-tender - mild lower discomfort on deep palpation , present bowel sounds Extremities: no edema, no tenderness, no cyanosis Laboratory Tests Test 07/11/17 05:35 White Blood Count 18.4 K/UL (4.8-10.8) H Red Blood Count 3.94 M/UL (4.20-5.40) L Hemoglobin 12.9 G/DL (12.0-16.0) Hematocrit 36.5 % (37.0-47.0) L Mean Corpuscular Volume 93 FL (80-99) Mean Corpuscular Hemoglobin 32.6 PG (27.0-31.0) H Mean Corpuscular Hemoglobin Concent 35.3 G/DL (32.0-36.0) Red Cell Distribution Width 11.9 % (11.6-14.8) Platelet Count 223 K/UL (150-450) Mean Platelet Volume 6.1 FL (6.5-10.1) L Neutrophils (%) (Auto) % (45.0-75.0) Lymphocytes (%) (Auto) % (20.0-45.0) Monocytes (%) (Auto) % (1.0-10.0) Eosinophils (%) (Auto) % (0.0-3.0) Basophils (%) (Auto) % (0.0-2.0) Differential Total Cells Counted 100 Neutrophils % (Manual) 73 % (45-75) Lymphocytes % (Manual) 16 % (20-45) L Monocytes % (Manual) 11 % (1-10) H Eosinophils % (Manual) 0 % (0-3) Basophils % (Manual) 0 % (0-2) Band Neutrophils 0 % (0-8) Platelet Estimate Adequate Platelet Morphology Normal Red Blood Cell Morphology Normal Sodium Level 134 MMOL/L (136-145) L Potassium Level 3.6 MMOL/L (3.5-5.1) Chloride Level 104 MMOL/L (98-107) Carbon Dioxide Level 23 MMOL/L (21-32) Anion Gap 7 mmol/L (5-15) Blood Urea Nitrogen 3 mg/dL (7-18) L Creatinine 0.8 MG/DL (0.55-1.30) Estimat Glomerular Filtration Rate > 60 mL/min (>60) Glucose Level 99 MG/DL (74-106) Calcium Level 8.6 MG/DL (8.5-10.1) Magnesium Level 1.7 MG/DL (1.8-2.4) L Total Bilirubin 1.1 MG/DL (0.2-1.0) H Direct Bilirubin 0.3 MG/DL (0.0-0.3) Aspartate Amino Transf (AST/SGOT) 11 U/L (15-37) L Alanine Aminotransferase (ALT/SGPT) 16 U/L (12-78) Alkaline Phosphatase 58 U/L (46-116) Total Protein 6.6 G/DL (6.4-8.2) Albumin 3.0 G/DL (3.4-5.0) L Globulin 3.6 g/dL Albumin/Globulin Ratio 0.8 (1.0-2.7) L Plan Problems: (1) Acute diverticulitis Assessment & Plan: Acute uncomplicated diverticulitis in otherwise healthy 31 [address]. [address] as noted. Fevers resolved. leukocytosis likely reactive. -okay for clear liquids. do not advance diet yet please. -IV Abx -will monitor exam. fortunately will likely do well without any issues during this admission. given findings should have IV abx until tenderness and leukocytosis resolved. will follow with recs. thank you for this consultation. Mendez Guthrie Jul 11, 2017 14:08
[2017-07-11 16:00] VITALS: BP 100/50
[2017-07-11] MEDS ORDERED: Tubing IV Secondary IV ONE (16:17)
--- NOTE | 2017-07-11 18:32 | General Progress Note ---
Assessment/Plan Problem List: (1) Acute diverticulitis ICD Codes: K57.92 - Diverticulitis of intestine, part unspecified, without perforation or abscess without bleeding SNOMED: 063338025 (2) Sepsis ICD Codes: A41.9 - Sepsis, unspecified organism SNOMED: 33936149 (3) Hyponatremia ICD Codes: E87.1 - Hypo-osmolality and hyponatremia SNOMED: 91156951 Status: stable Assessment/Plan Surgery consulted Cont CLD per surgery mIVFs Empiric IV abx: cipro + flagyl for acute diverticulitis ID consulted given uptrending WBC Check blood cultures x 2 Serial abd exam Pain control, bowel regimen Supportive care SCDs and early ambulation for DVT ppx PPI FULL CODE A total of 32min of extra time was spent on this encounter in addition to normal encounter time care/coordination and counseling. Discussed with patient, RN, surgery regarding mgmt and dispo. D/w ID re uptrending CBC, abx Subjective Date patient seen: Jul 11, 2017 Time patient seen: 12:00 ROS Limited/Unobtainable: No Constitutional: Reports: fever, malaise, weakness HEENT: Reports: no symptoms Cardiovascular: Reports: no symptoms Respiratory: Reports: no symptoms Gastrointestinal/Abdominal: Reports: abdominal pain Genitourinary: Reports: no symptoms Neurologic/Psychiatric: Reports: no symptoms Endocrine: Reports: no symptoms Hematologic/Lymphatic: Reports: no symptoms Allergies: Coded Allergies: PENICILLINS (Verified Allergy, Unknown, 07/10/17) Subjective No acute o/n events Tmax 101 yesterday evening Afebrile this AM WBC uptrending to 18K this AM Pt cont to c/o L sided abd pain. Tolerating CLD. Denies f/c, n/v, chest pain, SOB. Some loose stool Objective Last 24 Hour Vital Signs Date Time Temp Pulse Resp B/P (MAP) Pulse Ox O2 Delivery O2 Flow Rate FiO2 07/11/17 16:00 98.9 75 18 100/50 95 07/11/17 12:27 98.4 07/11/17 11:49 98.4 86 20 101/60 100 07/11/17 11:28 98.4 07/11/17 08:17 98.4 89 18 99/54 97 07/11/17 03:58 99.8 94 18 104/68 97 07/11/17 00:00 100.8 97 18 101/53 97 07/11/17 00:00 97 Room Air 07/10/17 20:00 95 Room Air 07/10/17 20:00 99.9 107 18 107/66 95 Intake and Output 07/10/17 07/11/17 19:00 07:00 Intake Total 2275 ml 1320 ml Balance 2275 ml 1320 ml Intake Oral 260 ml IV Total 2275 ml 1060 ml # Voids 2 Laboratory Tests 07/11/17 05:35: White Blood Count 18.4H, Red Blood Count 3.94L, Hemoglobin 12.9, Hematocrit 36.5L, Mean Corpuscular Volume 93, Mean Corpuscular Hemoglobin 32.6H, Mean Corpuscular Hemoglobin Concent 35.3, Red Cell Distribution Width 11.9, Platelet Count 223, Mean Platelet Volume 6.1L, Neutrophils (%) (Auto) , Lymphocytes (%) ( Auto) , Monocytes (%) (Auto) , Eosinophils (%) (Auto) , Basophils (%) (Auto) , Differential Total Cells Counted 100, Neutrophils % (Manual) 73, Lymphocytes % ( Manual) 16L, Monocytes % (Manual) 11H, Eosinophils % (Manual) 0, Basophils % ( Manual) 0, Band Neutrophils 0, Platelet Estimate Adequate, Platelet Morphology Normal, Red Blood Cell Morphology Normal, Sodium Level 134L, Potassium Level 3.6 , Chloride Level 104, Carbon Dioxide Level 23, Anion Gap 7, Blood Urea Nitrogen 3L, Creatinine 0.8, Estimat Glomerular Filtration Rate > 60, Glucose Level 99, Calcium Level 8.6, Magnesium Level 1.7L, Total Bilirubin 1.1H, Direct Bilirubin 0.3, Aspartate Amino Transf (AST/SGOT) 11L, Alanine Aminotransferase (ALT/SGPT) 16, Alkaline Phosphatase 58, Total Protein 6.6, Albumin 3.0L, Globulin 3.6, Albumin/Globulin Ratio 0.8L Height (Feet): 5 Height (Inches): 3.00 Weight (Pounds): 150 Objective General: alert, cooperative, no distress, appears stated age Head: normocephalic, without obvious abnormality, atraumatic Eyes: conjunctivae/corneas clear. PERRL, EOM's intact Throat: lips, mucosa, and tongue normal. MMM Neck: supple, symmetrical, trachea midline, and no JVD Lungs: clear to auscultation bilaterally Heart: regular rate and rhythm, S1, S2 normal, no murmur, click, rub or gallop Abdomen: soft, +TTP of LUQ and LLQ w/o rebound/guarding, non-distended, bowel sounds normal; no masses or organomegaly Extremities: extremities normal, atraumatic, no cyanosis or edema Pulses: 2+ and symmetric Skin: skin color, texture, turgor normal; no rashes or lesions Neurologic: grossly normal, no focal deficits Kat Somers M.D. Jul 11, 2017 18:32
[2017-07-11 20:22] VITALS: BP 115/71
[2017-07-12 00:04] VITALS: BP 98/46
[2017-07-12 03:54] VITALS: BP 106/60
[2017-07-12 07:04] LABS: ANION GAP 8 mmol/L (5-15); BLOOD UREA NITROGEN 4 mg/dL (7-18); CALCIUM 8.6 MG/DL (8.5-10.1); CARBON DIOXIDE 22 MMOL/L (21-32); CHLORIDE 106 MMOL/L (98-107); CREATININE 0.7 MG/DL (0.55-1.30); SODIUM 136 MMOL/L (136-145)
[2017-07-12 07:20] LABS: BASOPHILS % (AUTO) 0.7 % (0.0-2.0); EOSINOPHILS % (AUTO) 0.5 % (0.0-3.0); HEMATOCRIT 36.8 % (37.0-47.0); HEMOGLOBIN 12.6 G/DL (12.0-16.0); MEAN CORPUSCULAR VOLUME 93 FL (80-99); MONOCYTES % (AUTO) 8.4 % (1.0-10.0); NEUTROPHILS % (AUTO) 80.4 % (45.0-75.0); PLATELET COUNT 198 K/UL (150-450); RED BLOOD COUNT 3.95 M/UL (4.20-5.40); RED CELL DISTRIBUTION WIDTH 11.8 % (11.6-14.8); WHITE BLOOD COUNT 14.7 K/UL (4.8-10.8)
[2017-07-12] MEDS: D5 1/2NS w/KCl 20mEq 1,000 ML IV SCH (07:52)
[2017-07-12 08:13] VITALS: BP 100/63
[2017-07-12 11:31] VITALS: BP 100/63
[2017-07-12] MEDS ORDERED: CIPROFLOXACIN500 M2 ORAL (14:01)
[2017-07-12] MEDS ORDERED: METRONIDAZOLE500 MG ORAL (14:01)
[2017-07-12 15:45] VITALS: BP 106/60
--- NOTE | 2017-07-12 16:22 | Infectious Diseases Prog Note ---
Assessment/Plan Assessment/Plan A) 1) acute diverticulitis, leukocytosis, abdominal pain since Saturday, fevers - clinically better - patient wants to go home but will repeat cbc this afternoon 2) allergies - pcn, throat closes, rash 3) ct noted - no abscess P) 1) cipro and flagyl iv 2) watch labs and temps - check cbc this afternoon to see wbc count 3) d/w Dr. Stephens and patient 4) communicated with surgery 5) d/w patient Subjective Constitutional: Reports: fever - less today Respiratory: Denies: shortness of breath Gastrointestinal/Abdominal: Reports: other - less abdominal pain, Denies: nausea, vomiting, diarrhea Allergies: Coded Allergies: PENICILLINS (Verified Allergy, Unknown, 07/10/17) Objective Vital Signs Last 24 Hour Vital Signs Date Time Temp Pulse Resp B/P (MAP) Pulse Ox O2 Delivery O2 Flow Rate FiO2 07/12/17 15:45 98.6 78 20 106/60 100 07/12/17 11:31 98.6 86 20 100/63 99 07/12/17 08:13 98.1 77 20 100/63 100 07/12/17 03:54 97.9 74 18 106/60 97 07/12/17 03:54 97 Room Air 07/12/17 00:04 98.1 74 18 98/46 97 07/12/17 00:04 97 Room Air 07/11/17 22:00 99.0 07/11/17 20:59 100.9 07/11/17 20:22 100.9 104 18 115/71 96 Room Air 07/11/17 20:22 96 Room Air Height (Feet): 5 Height (Inches): 3.00 Weight (Pounds): 150 General Appearance: no acute distress HEENT: normocephalic, atraumatic, anicteric Respiratory/Chest: lungs clear, normal breath sounds, no respiratory distress Cardiovascular: normal rate, regular rhythm Abdomen: normal bowel sounds, soft, non tender, no organomegaly, tender - less tender - 3/10 on pain scale Laboratory Tests Test 07/12/17 05:30 White Blood Count 14.7 K/UL (4.8-10.8) H Red Blood Count 3.95 M/UL (4.20-5.40) L Hemoglobin 12.6 G/DL (12.0-16.0) Hematocrit 36.8 % (37.0-47.0) L Mean Corpuscular Volume 93 FL (80-99) Mean Corpuscular Hemoglobin 31.9 PG (27.0-31.0) H Mean Corpuscular Hemoglobin Concent 34.2 G/DL (32.0-36.0) Red Cell Distribution Width 11.8 % (11.6-14.8) Platelet Count 198 K/UL (150-450) Mean Platelet Volume 6.0 FL (6.5-10.1) L Neutrophils (%) (Auto) 80.4 % (45.0-75.0) H Lymphocytes (%) (Auto) 10.0 % (20.0-45.0) L Monocytes (%) (Auto) 8.4 % (1.0-10.0) Eosinophils (%) (Auto) 0.5 % (0.0-3.0) Basophils (%) (Auto) 0.7 % (0.0-2.0) Sodium Level 136 MMOL/L (136-145) Potassium Level 4.0 MMOL/L (3.5-5.1) Chloride Level 106 MMOL/L (98-107) Carbon Dioxide Level 22 MMOL/L (21-32) Anion Gap 8 mmol/L (5-15) Blood Urea Nitrogen 4 mg/dL (7-18) L Creatinine 0.7 MG/DL (0.55-1.30) Estimat Glomerular Filtration Rate > 60 mL/min (>60) Glucose Level 97 MG/DL (74-106) Calcium Level 8.6 MG/DL (8.5-10.1) Current Medications Medications (Trade) Dose Ordered Sig/Jamey Route PRN Reason Start Time Stop Time Status Last Admin Dose Admin Acetaminophen (Tylenol) 650 mg Q4H PRN ORAL Mild Pain (Pain Scale 1-3) 07/10/17 13:15 08/09/17 13:14 07/11/17 11:28 Acetaminophen (Tylenol) 650 mg Q4H PRN ORAL fever 07/10/17 13:15 08/09/17 13:14 07/11/17 20:59 Acetaminophen (Tylenol) 650 mg Q4H PRN RECTAL Mild Pain (Pain Scale 1-3) 07/10/17 13:15 08/09/17 13:14 Acetaminophen (Tylenol) 650 mg Q4H PRN RECTAL fever 07/10/17 13:15 08/09/17 13:14 Ciprofloxacin 200 ml @ 200 mls/hr Q12HR IVPB 07/10/17 21:00 07/17/17 20:59 07/12/17 07:52 Dextrose (Dextrose 50%) STAT PRN IV Hypoglycemia 07/10/17 13:15 08/09/17 13:14 Dextrose/ Electrolytes 1,000 ml @ 75 mls/hr [id number] IV 07/10/17 16:00 08/09/17 15:59 07/12/17 07:52 Ketorolac Tromethamine (Toradol 30mg) 15 mg Q6H PRN IV moderate to severe pain 07/10/17 14:45 07/15/17 14:44 Metronidazole 100 ml @ 100 mls/hr Q8HR IVPB 07/11/17 14:30 07/18/17 14:29 07/12/17 13:14 Ondansetron HCl (Zofran) 4 mg Q6H PRN IVP Nausea & Vomiting 07/10/17 13:15 08/09/17 13:14 Polyethylene Glycol (Miralax) 17 gm HSPRN PRN ORAL Constipation 07/10/17 13:15 08/09/17 13:14 Zolpidem Tartrate (Ambien) 5 mg HSPRN PRN ORAL Insomnia 07/10/17 13:15 07/17/17 13:14 JENNIFER ROSAS Jul 12, 2017 16:22
[2017-07-12 16:59] LABS: EOSINOPHILS % (AUTO) 0.6 % (0.0-3.0); HEMATOCRIT 36.3 % (37.0-47.0); HEMOGLOBIN 12.8 G/DL (12.0-16.0); LYMPHOCYTES % (AUTO) 13.3 % (20.0-45.0); MEAN CORPUSCULAR VOLUME 92 FL (80-99); MONOCYTES % (AUTO) 8.6 % (1.0-10.0); NEUTROPHILS % (AUTO) 76.6 % (45.0-75.0); PLATELET COUNT 228 K/UL (150-450); RED BLOOD COUNT 3.94 M/UL (4.20-5.40); RED CELL DISTRIBUTION WIDTH 11.5 % (11.6-14.8); WHITE BLOOD COUNT 12.8 K/UL (4.8-10.8)
--- NOTE | 2017-07-12 17:54 | Discharge Instructions ---
Discharge Instructions Discharge Instructions Follow up with: Dr. Guthrie in 1 week - call [phone] Call MD/Return to Hospital if: fevers/chills, worsening abd pain, nausea/ vomiting, diarhea Additional Diet Information: Dr. Guthrie in 1 week - call [phone] Resume Normal Activity?: Yes Activity: resume normal activities For Congestive Heart Failure Reminder Report to your physician any weight gain of 5 pounds or more in one week. Kat Somers M.D. Jul 12, 2017 17:54
--- NOTE | 2017-07-12 18:20 | General Surgery Progress Note ---
General Surgery-Progress Note Subjective Symptoms: improved Additional Comments pain resolved. tolerating diet. ambulatory really wants to go home. Objective Last 24 Hour Vital Signs Date Time Temp Pulse Resp B/P (MAP) Pulse Ox O2 Delivery O2 Flow Rate FiO2 07/12/17 15:45 98.6 78 20 106/60 100 07/12/17 11:31 98.6 86 20 100/63 99 07/12/17 08:13 98.1 77 20 100/63 100 07/12/17 03:54 97.9 74 18 106/60 97 07/12/17 03:54 97 Room Air 07/12/17 00:04 98.1 74 18 98/46 97 07/12/17 00:04 97 Room Air 07/11/17 22:00 99.0 07/11/17 20:59 100.9 07/11/17 20:22 100.9 104 18 115/71 96 Room Air 07/11/17 20:22 96 Room Air I&O Intake and Output 07/11/17 07/12/17 19:00 07:00 Intake Total 1695 ml 1070 ml Balance 1695 ml 1070 ml Intake Oral 720 ml IV Total 975 ml 1070 ml # Voids 1 2 Cardiovascular: RSR Respiratory: clear Abdomen: soft, flat, non-tender, present bowel sounds Extremities: no edema, no tenderness Laboratory Tests Test 07/12/17 05:30 07/12/17 16:25 White Blood Count 14.7 K/UL (4.8-10.8) H 12.8 K/UL (4.8-10.8) H Red Blood Count 3.95 M/UL (4.20-5.40) L 3.94 M/UL (4.20-5.40) L Hemoglobin 12.6 G/DL (12.0-16.0) 12.8 G/DL (12.0-16.0) Hematocrit 36.8 % (37.0-47.0) L 36.3 % (37.0-47.0) L Mean Corpuscular Volume 93 FL (80-99) 92 FL (80-99) Mean Corpuscular Hemoglobin 31.9 PG (27.0-31.0) H 32.6 PG (27.0-31.0) H Mean Corpuscular Hemoglobin Concent 34.2 G/DL (32.0-36.0) 35.4 G/DL (32.0-36.0) Red Cell Distribution Width 11.8 % (11.6-14.8) 11.5 % (11.6-14.8) L Platelet Count 198 K/UL (150-450) 228 K/UL (150-450) Mean Platelet Volume 6.0 FL (6.5-10.1) L 6.0 FL (6.5-10.1) L Neutrophils (%) (Auto) 80.4 % (45.0-75.0) H 76.6 % (45.0-75.0) H Lymphocytes (%) (Auto) 10.0 % (20.0-45.0) L 13.3 % (20.0-45.0) L Monocytes (%) (Auto) 8.4 % (1.0-10.0) 8.6 % (1.0-10.0) Eosinophils (%) (Auto) 0.5 % (0.0-3.0) 0.6 % (0.0-3.0) Basophils (%) (Auto) 0.7 % (0.0-2.0) 1.0 % (0.0-2.0) Sodium Level 136 MMOL/L (136-145) Potassium Level 4.0 MMOL/L (3.5-5.1) Chloride Level 106 MMOL/L (98-107) Carbon Dioxide Level 22 MMOL/L (21-32) Anion Gap 8 mmol/L (5-15) Blood Urea Nitrogen 4 mg/dL (7-18) L Creatinine 0.7 MG/DL (0.55-1.30) Estimat Glomerular Filtration Rate > 60 mL/min (>60) Glucose Level 97 MG/DL (74-106) Calcium Level 8.6 MG/DL (8.5-10.1) Plan Problems: (1) Acute diverticulitis Assessment & Plan: Acute uncomplicated diverticulitis in otherwise healthy 31 [address] young female. CT as noted. Fevers resolved. leukocytosis 12k and continues to trend own -okay for diet as tolerated -oral Abx -okay to d/c home. will see in office this saturday. patient instructed to call or return [facility] if worsening condition. will follow with recs. thank you for this consultation. Mendez Guthrie Jul 12, 2017 18:20
--- NOTE | 2017-07-12 22:00 | Consultation ---
DATE OF CONSULTATION: 07/11/2017 INFECTIOUS DISEASES CONSULTATION ATTENDING PHYSICIAN: Alirio Garcia M.D. REASON FOR CONSULTATION: Diverticulitis, leukocytosis, and fevers. The patient's chief complaint for coming in the hospital is abdominal pain with diagnosis of acute diverticulitis. HISTORY OF PRESENT ILLNESS: This is a very pleasant 31-year-old female, who has abdominal pain since Saturday. The patient came to [facility] with abdominal pain and CT scan of abdomen and pelvis showed acute diverticulitis in the descending colon. The patient was started on Cipro and Flagyl. The patient's white count on the 07/11/2017 increased to 18. Infectious Diseases consult requested for antibiotic management. The patient is currently on Cipro and Flagyl. She has allergy to penicillin. Case discussed with Dr. Stephens and also Surgery. The patient was began on Cipro and Flagyl at this time. The patient was continued on Cipro and Flagyl. Her white count today is improved to 14.7. MAR was noted. Orders noted. Notes were reviewed. Case discussed with RN and also the patient. PAST MEDICAL HISTORY: Otherwise, no significant past medical history in this patient. MEDICATIONS: Upon reviewing the MAR, she is on the following medications. She is on Cipro and Flagyl IV. She is on Tylenol. She is on MiraLAX, Zofran and Ambien. ALLERGIES: Penicillin where she has her throat closes and I believe she gets a rash. The patient allergic to pencillin. Again, swelling in throat and rash. SOCIAL HISTORY: Negative for smoking, alcohol, or drug abuse. FAMILY HISTORY: Noncontributory. REVIEW OF SYSTEMS: CONSTITUTIONAL: The patient has fevers. No chills at this time. No weight loss or night sweats. HEAD AND NECK: No thrush or dysphagia. No sinus tenderness. CARDIAC: No chest pain or palpitations. GASTROINTESTINAL: No nausea, vomiting, or diarrhea. She has less abdominal pain today, 08/03. PULMONARY: No congestion, shortness of breath, hemoptysis or secretions. SKIN: No rash or itching. EXTREMITIES: No extremity pain. NEUROLOGIC: No seizures. PHYSICAL EXAMINATION: GENERAL: Alert, responsive, no distress. Nontoxic. VITAL SIGNS: T-max was 101.2 degrees on the 07/10/2017 and 100.9 degrees yesterday. Currently, temperature 98.6 degrees, pulse rate 70, respiratory 20, blood pressure 106/60 and saturation 100%. HEAD AND NECK: Oral exam, no thrush. Eye exam, no icterus. Normocephalic. No facial droop. No neck stiffness. Neck is supple. HEART: Regular. No rubs, gallop or murmur. ABDOMEN: Soft. Positive bowel sounds. There is some tenderness she has had 3/10. No rebound. LUNGS: Clear bilaterally. No rhonchi or rales. SKIN: No rash. MUSCULOSKELETAL: No effusion. Legs without cellulitis. PERIPHERAL VASCULAR: No cyanosis or gangrene. GENITOURINARY: No Olivo. No CVA tenderness. LINES: Line sites without phlebitis. NEUROLOGIC: No focal weakness. She is alert and oriented x3. Intact. LABORATORY AND DIAGNOSTIC DATA: The patient's laboratory data laboratory as follows. White count yesterday is 18.4 and hemoglobin 12.9. Today, white count 14.7 and hemoglobin 12.6. Admission white count 16.6. Creatinine is 0.7. Followup CBC has been ordered this afternoon. UA is negative. CT scan of the abdomen and pelvis showed acute diverticulitis of descending colon. ASSESSMENT AND PLAN: 1. The patient has acute diverticulitis with elevated white count and fevers. Fevers somewhat improved and clinically, she has improved today. Her pain is less. Her white count is also coming down from 18.4 to now 14.7. However, on communication with Dr. Stephens and Surgery, we will like to see that white count comes down further and further improvement in abdominal pain to continue. The patient at this point wants to go home, however, she will repeat CBC this afternoon and at that time, we will decide what to do with regards to antibiotics. Case discussed with the patient also. We will continue Cipro and Flagyl for now. The patient will need approximately 10 days' treatment course of antibiotics. 2. No other significant past medical history. 3. Allergies penicillin. 4. Family history noncontributory. 5. Social history is negative. 6. MAR is noted. 7. Case discussed with RN. 8. Continue treatment per primary consultants. 9. Case discussed with Dr. Stephens and Surgery. Dinorah Munoz M.D. DR: RUDY JOB#: [id number] CC: JAYLENE
--- NOTE | 2017-07-16 08:06 | Discharge Summary ---
Discharge Summary Hospital Course Date of Admission Jul 10, 2017 at 11:33 Date of Discharge Jul 12, 2017 at 18:14 Admitting Diagnosis acute diverticulitis Reason for Hospitalization: sepsis, acute diverticulitis HPI 31y/o female with no sig pmh who presents with abd pain. Pt states pain began as slight discomfort 2 days ago (on Saturday) but worsened yesterday night and this AM prompting her to come to ER. She feels a sharp pain under her ribs on the left-hand side and it radiates down to the lower abdomen. It's more in the left upper abdomen. It's constant. /10. She felt was related to constipation and so she took a stool softener and also the other laxative. She last moved her bowels yesterday, normal BM, no blood in stool. She denies any dysuria. Her last period was 10 days ago and normal for her. Some subjective fevers, no chills/night sweats. Denies n/v/d, chest pain, SOB, cough. In ED, pt noted to have low-grade fever, WBC to 16K. CT a/p showed acute diverticulitis. Consultations Infectious disease, Surgery Hospital Course Pt was admitted and seen by surgery who stated no acute surgical intervention warranted but pt requires close monitoring. She was started on clear liquid diet. Her WBC uptrended so ID was consulted and antibiotics adjusted. Once pain improved, tolerating PO, and WBC downtrending, pt was discharged home on oral antibiotics to complete course. Discharge physical exam: General: alert, cooperative, no distress, appears stated age Head: normocephalic, without obvious abnormality, atraumatic Eyes: conjunctivae/corneas clear. PERRL, EOM's intact Throat: lips, mucosa, and tongue normal. MMM Neck: supple, symmetrical, trachea midline, and no JVD Lungs: clear to auscultation bilaterally Heart: regular rate and rhythm, S1, S2 normal, no murmur, click, rub or gallop Abdomen: soft, +mild TTP of LUQ and LLQ w/o rebound/guarding, non-distended, bowel sounds normal; no masses or organomegaly Extremities: extremities normal, atraumatic, no cyanosis or edema Pulses: 2+ and symmetric Skin: skin color, texture, turgor normal; no rashes or lesions Neurologic: grossly normal, no focal deficits Discharge diagnoses: (1) Acute diverticulitis ICD Codes: K57.92 - Diverticulitis of intestine, part unspecified, without perforation or abscess without bleeding SNOMED: 139446883 (2) Sepsis ICD Codes: A41.9 - Sepsis, unspecified organism SNOMED: 76454446 (3) Hyponatremia ICD Codes: E87.1 - Hypo-osmolality and hyponatremia SNOMED: 92487799 Discharge Medications New Medications: Ciprofloxacin Hcl* (Ciprofloxacin Hcl*) 500 Mg Tablet 500 MG ORAL Q12H for 7 Days, #14 TAB 0 Refills Metronidazole* (Flagyl*) 500 Mg Tablet 500 MG ORAL THREE TIMES A DAY for 7 Days, #21 TAB Discharge Condition Upon Discharge: stable Discharge Disposition Patient was discharged to Home (01) Discharge Diagnoses: Discharge Instructions Discharge Instructions Follow up with: Dr. Guthrie in 1 week - call [phone] Call MD/Return to Hospital if: fevers/chills, worsening abd pain, nausea/ vomiting, diarhea Additional Diet Information: Dr. Guthrie in 1 week - call [phone] Activity: resume normal activities Kat Somers M.D. Jul 16, 2017 08:05
== END 2017-07-12 18:14 | disposition home or self-care (01) | DRG 392 ==
LOC: EMR 06:57 → 4W 11:33 → EDBEDREQ 12:26
DX: K57.32 Diverticulitis of large intestine without perforation or abscess without bleeding (principal); E87.1 Hypo-osmolality and hyponatremia; Z88.0 Allergy status to penicillin
CPT/HCPCS: 36415; 74177; 80048; 80053; 81003; 81025; 82248; 83690; 83735; 85007; 85025; 85610; 85730; 87040; 99285; J2405